=== PATIENT | female | born 1945 | race Caucasian/White ===

== ENCOUNTER 2025-04-16 15:38 | Inpatient (IN) | payer MEDICARE ==
[2025-04-16 17:15] LABS: Troponin I 0.017 ng/mL (< 0.028)
[2025-04-16 17:16] LABS: ALT (SGPT) 19 U/L (Less than 34); AST (SGOT) 55 U/L (11-34); Albumin 3.7 g/dL (3.1-4.5); Alkaline Phosphatase 85 U/L (40-110); Anion Gap 12 mmol/L (10-20); BUN (Urea Nitrogen) 14 mg/dL (9.8-20.1); Bilirubin, Total 0.7 mg/dL (0.3-1.2); CK (CPK) 1568 U/L (29-168); Calc. Creatinine Clearance 0 mL/min (70-130); Calcium 9.0 mg/dL (7.8-10.44); Carbon Dioxide 27 mmol/L (23-31); Chloride 104 mmol/L (98-107); Globulin 3.0 g/dL (2.4-3.5); Glucose 104 mg/dL (83-110); Magnesium 2.0 mg/dL (1.6-2.6); Potassium 3.3 mmol/L (3.5-5.1); Sodium 140 mmol/L (136-145)
[2025-04-16] MEDS ORDERED: Pantoprazole 40 MG VIAL ONE (17:23)
[2025-04-16] MEDS ORDERED: Senokot S 8.6-50 MG TAB PO PRN (17:57)
[2025-04-16] MEDS ORDERED: Acetaminophen 325 MG TAB PO PRN (17:57)
[2025-04-16] MEDS ORDERED: Guaifenesin DM 100-10/5 ML UDCUP PO PRN (17:57)
[2025-04-16 18:06] LABS: Hematocrit 35.9 % (36.0-47.0); Hemoglobin 11.1 g/dL (12.0-16.0); Red Blood Cell (RBC) Count 4.05 mill/uL (4.20-5.40); White Blood Cell (WBC) Count 9.61 10x3/uL (4.8-10.8)
[2025-04-16 18:07] LABS: Mean Corpuscular Hemoglobin 27.4 pg (27.0-31.0); Mean Corpuscular Volume 88.6 fL (78.0-98.0); Platelet Count 209 10x3/uL (130-400)
[2025-04-16 18:08] LABS: %Eosinophils 0.9 % (0.0-10.0); %Lymphocytes 20.3 % (21.0-51.0); %Monocytes 9.3 % (0.0-10.0); %Neutrophils 68.7 % (42.0-75.0)
[2025-04-16 18:09] LABS: #Neutrophils 6.60 10x3/uL (1.40-6.50); %Basophils 0.5 % (0.0-1.0)
[2025-04-16 18:10] LABS: #Basophils 0.05 10x3/uL (0.0-0.2); #Eosinophils 0.09 10x3/uL (0.0-0.7); #Monocytes 0.89 10x3/uL (0.11-0.59)
[2025-04-16] MEDS ORDERED: Pantoprazole 40 MG DR.TAB PO PRN (18:36)
[2025-04-16 20:16] VITALS: BMI 32.1
[2025-04-16 22:07] LABS: Bacteria/HPF 4+ HPF (None Seen); CAUTI Indications for Culture Dysuria,urgency,freq; Glucose, Urine (Dipstick) Normal (Negative); Leukocyte 250 Leu/uL (Negative); Protein, Urine (Dipstick) 30 mg/dL (Neg-Trace); RBC/HPF 0-3 HPF (0-3); Specific Gravity, Urine 1.030 (1.002-1.036); WBC/HPF 21-50 HPF (0-3)
[2025-04-16 22:09] LABS: Urine Culture Reflex Yes Yes
[2025-04-17 06:27] LABS: #Basophils 0.04 10x3/uL (0.0-0.2); #Eosinophils 0.14 10x3/uL (0.0-0.7); #Monocytes 0.85 10x3/uL (0.11-0.59); #Neutrophils 4.52 10x3/uL (1.40-6.50); %Basophils 0.5 % (0.0-1.0); %Eosinophils 1.9 % (0.0-10.0); %Lymphocytes 25.2 % (21.0-51.0); %Monocytes 11.4 % (0.0-10.0); %Neutrophils 60.6 % (42.0-75.0); Hematocrit 37.4 % (36.0-47.0); Hemoglobin 11.6 g/dL (12.0-16.0); Mean Corpuscular Hemoglobin 27.6 pg (27.0-31.0); Mean Corpuscular Volume 89.0 fL (78.0-98.0); Platelet Count 176 10x3/uL (130-400); Red Blood Cell (RBC) Count 4.20 mill/uL (4.20-5.40); White Blood Cell (WBC) Count 7.46 10x3/uL (4.8-10.8)
[2025-04-17 07:05] LABS: Anion Gap 12 mmol/L (10-20); BUN (Urea Nitrogen) 14 mg/dL (9.8-20.1); Calc. Creatinine Clearance 54 mL/min (70-130); Calcium 8.8 mg/dL (7.8-10.44); Carbon Dioxide 23 mmol/L (23-31); Chloride 111 mmol/L (98-107); Glucose 130 mg/dL (83-110); Potassium 3.4 mmol/L (3.5-5.1); Sodium 143 mmol/L (136-145)
[2025-04-17] MEDS: Sertraline 100 MG TAB PO SCH (12:39)
[2025-04-17] MEDS: Metoprolol Succinate XL 50 MG ER.TAB PO SCH (12:40)
[2025-04-17] MEDS: Potassium Bicarbonate/Cit Ac 20 MEQ TAB PO SCH (12:40)
[2025-04-17] MEDS: Acidophilus Lactiobac CAPSULE PO SCH (12:41)
[2025-04-17] MEDS: HYDROcodone/Acetaminophen 5/325 mg Tablet PO PRN (13:37)
[2025-04-17] MEDS: Baclofen 10 MG TAB PO SCH (21:10)
[2025-04-17] MEDS: Gabapentin 300 MG CAP PO SCH (21:11)
[2025-04-18 07:12] LABS: #Basophils Less than 0.03 10x3/uL (0.0-0.2); #Eosinophils 0.09 10x3/uL (0.0-0.7); #Monocytes 0.49 10x3/uL (0.11-0.59); #Neutrophils 3.40 10x3/uL (1.40-6.50); %Basophils 0.3 % (0.0-1.0); %Eosinophils 1.6 % (0.0-10.0); %Lymphocytes 30.6 % (21.0-51.0); %Monocytes 8.5 % (0.0-10.0); %Neutrophils 58.7 % (42.0-75.0); Hematocrit 36.1 % (36.0-47.0); Hemoglobin 11.1 g/dL (12.0-16.0); Mean Corpuscular Hemoglobin 27.8 pg (27.0-31.0); Mean Corpuscular Volume 90.3 fL (78.0-98.0); Platelet Count 183 10x3/uL (130-400); Red Blood Cell (RBC) Count 4.00 mill/uL (4.20-5.40); White Blood Cell (WBC) Count 5.79 10x3/uL (4.8-10.8)
[2025-04-18 07:35] LABS: Anion Gap 12 mmol/L (10-20); BUN (Urea Nitrogen) 13 mg/dL (9.8-20.1); CK (CPK) 318 U/L (29-168); Calc. Creatinine Clearance 59 mL/min (70-130); Calcium 8.8 mg/dL (7.8-10.44); Carbon Dioxide 25 mmol/L (23-31); Chloride 110 mmol/L (98-107); Glucose 109 mg/dL (83-110); Magnesium 2.0 mg/dL (1.6-2.6); Potassium 4.2 mmol/L (3.5-5.1); Sodium 143 mmol/L (136-145)
[2025-04-18] MEDS: Aspirin 81 mg Enteric Coated Tablet PO SCH (08:41)
[2025-04-18] MEDS: Famotidine 20 MG TAB PO SCH (08:41)
[2025-04-18] MEDS: Multivit, Therapeutic 1 TAB PO SCH (08:41)
[2025-04-18] MEDS: Folic Acid 1 MG TAB PO SCH (08:41)
[2025-04-18] MEDS: Floranex 1 GM Packet PO SCH (08:42)
[2025-04-18] MEDS: Gabapentin 300 MG CAP PO SCH (08:42)
[2025-04-18 11:14] VITALS: BMI 32.1
[2025-04-19 20:17] VITALS: BP 148/72; TEMP 97.9
== END 2025-04-19 20:10 | disposition home or self-care (01) | DRG 641 ==
LOC: ERS 15:38 → T4-A 18:00 → OBSVTOIN 04-17 13:20
PROVIDERS: ADMIT Hospitalist; ATTEND Family Medicine
DX: E86.0 Dehydration (principal); N39.0 Urinary tract infection, site not specified; N17.9 Acute kidney failure, unspecified; M62.82 Rhabdomyolysis; B96.89 Other specified bacterial agents as the cause of diseases classified elsewhere; E87.6 Hypokalemia; I50.9 Heart failure, unspecified; I11.0 Hypertensive heart disease with heart failure; F32.A Depression, unspecified; E03.9 Hypothyroidism, unspecified; Z90.49 Acquired absence of other specified parts of digestive tract; J44.9 Chronic obstructive pulmonary disease, unspecified; Z90.710 Acquired absence of both cervix and uterus; Z87.891 Personal history of nicotine dependence; D64.9 Anemia, unspecified
CPT/HCPCS: 36415; 70450; 71045; 80048; 80053; 81001; 82550; 83735; 84484; 85025; 86850; 86900; 86901; 87077; 87086; 87186; 93005; 94760; 96361; 96374; G0378; J0692; J2470; J7030

== ENCOUNTER 2025-05-23 08:15 | Outpatient (CLI) | payer MEDICARE, MEDICAID ==
[2025-05-23 10:54] LABS: Estimated GFR - POC 46.0
== END 2025-05-23 08:16 | disposition home or self-care (01) ==
LOC: SCSMRI 08:15
PROVIDERS: ATTEND Physical Medicine & Rehabilitation
DX: M47.26 Other spondylosis with radiculopathy, lumbar region (principal); M75.81 Other shoulder lesions, right shoulder; R16.0 Hepatomegaly, not elsewhere classified; E27.8 Other specified disorders of adrenal gland; K76.89 Other specified diseases of liver; S46.111A Strain of muscle, fascia and tendon of long head of biceps, right arm, initial encounter; M75.111 Incomplete rotator cuff tear or rupture of right shoulder, not specified as traumatic; M19.011 Primary osteoarthritis, right shoulder; M47.27 Other spondylosis with radiculopathy, lumbosacral region; M43.17 Spondylolisthesis, lumbosacral region; M25.78 Osteophyte, vertebrae; M48.061 Spinal stenosis, lumbar region without neurogenic claudication; M48.02 Spinal stenosis, cervical region; M47.22 Other spondylosis with radiculopathy, cervical region; M50.10 Cervical disc disorder with radiculopathy, unspecified cervical region
CPT/HCPCS: 36415; 72141; 72148; 73221; 74183; 82565 ×2; A9581